=== PATIENT | male | born 1970 | race Caucasian/White ===

== ENCOUNTER 2021-11-29 18:45 | Emergency (ER) | payer OTHER ==
--- NOTE | 2021-11-29 19:25 | ERPHSYRPT ---
- History of Present Illness Time Seen by Provider: 11/29/21 19:10 Source: patient Exam Limitations: no limitations Patient Subjective Stated Complaint: PT states "I was at work and I got a little hot and I got somewhat short of breath and went home and took a hot shower and sat in front of an airconditioner but I am still short of breath and I just want checked out." Triage Nursing Assessment: Pt presented alert and oriented X 3, skin pwd Pt a mbulates with an upright steady gait, able to speak in clear full sentences. PT slightly short of breath. Physician History: This is an obese 51-year-old white male who worked all day at his place of employment in the hot environment because the air conditioning was not fu nctioning. He got off of work and he just felt very short of breath. He denies chest pain then and he denies chest pain now. When he got home he ate because he was very hungry and his shortness of breath has improved but was persistent and felt that, given his cardiac history, he should be evaluated. Patient has an abdominal hernia surgery scheduled tomorrow morning. He is already been cleared preoperatively by cardiology. Patient arrives to the emergency department with a systolic blood pressure in the 150s in the room air oxygen saturation level 97%. Patient has a history of coronary artery disease (CABG) he has a history of hypothyroidism and anxiety. He has history of diabetes and hypertension. Again, he does not have chest pain. Timing/Duration: today Activities at Onset: none Severity of Dyspnea-Max: moderate Severity of Dyspnea-Current: none Possible Cause: occasional episodes Associated Symptoms: denies symptoms, No chest pain/discomfort Allergies/Adverse Reactions: No Known Drug Allergies Allergy (Verified 11/29/21 18:58) Home Medications: Aspirin 81 gm Chew [Baby Aspirin 81 mg Chew] 81 mg PO DAILY 11/29/21 [History] Atorvastatin Calcium [Lipitor] 20 mg PO DAILY 11/29/21 [History] Carvedilol [Coreg] 3.125 mg PO DAILY 11/29/21 [History] Enalapril Maleate 2.5 mg PO DAILY 11/29/21 [History] Levothyroxine Sodium [Levothyroxine] 100 mcg PO DAILY 11/29/21 [History] Metformin HCl [Metformin ER Gastric] 1,000 mg PO DAILY 11/29/21 [History] clonazePAM [Clonazepam] 2 mg PO DAILY 11/29/21 [History] Hx Tetanus, Diphtheria Vaccination/Date Given: No Hx Influenza Vaccination/Date Given: Yes Hx Pneumococcal Vaccination/Date Given: No Immunizations Up to Date: Yes Travel Risk - International Travel Have you traveled outside of the country in past 3 weeks: No - Coronavirus Screening Are you exhibiting any of the following symptoms?: No Close contact with a COVID-19 positive Pt in past 14-21 Days: No - Vaccine Status Have you recieved a Covid-19 vaccination: Yes Appointment Scheduler: Wedivite - Vaccination Dates Date of 2cond Vaccination (if applicable): 2020 - Review of Systems Constitutional: No Symptoms Eyes: No Symptoms Ears, Nose, & Throat: No Symptoms Respiratory: Dyspnea Cardiac: No Symptoms Abdominal/Gastrointestinal: No Symptoms Genitourinary Symptoms: No Symptoms Musculoskeletal: No Symptoms Skin: No Symptoms Neurological: No Symptoms Psychological: No Symptoms Endocrine: No Symptoms Hematologic/Lymphatic: No Symptoms Immunological/Allergic: No Symptoms All Other Systems: Reviewed and Negative - Past Medical History Pertinent Past Medical History: Yes Neurological History: No Pertinent History ENT History: No Pertinent History Cardiac History: Coronary Artery Disease, High Cholesterol, Hypertension Respiratory History: No Pertinent History Endocrine Medical History: Diabetes Type II, Hypoglycemia Musculoskeletal History: No Pertinent History GI Medical History: No Pertinent History History: No Pertinent History Psycho-Social History: Anxiety, Depression Male Reproductive Disorders: No Pertinent History - Past Surgical History Past Surgical History: Yes Cardiac: CABG Other Surgical History: right arm. appi. abdominal - Social History Smoking Status: Former smoker Exposure to second hand smoke: Yes Drug Use: none Patient Lives Alone: No - Nursing Vital Signs Nursing Vital Signs: Initial Vital Signs Temperature 98.6 F 11/29/21 18:51 Pulse Rate 86 11/29/21 18:51 Respiratory Rate 22 11/29/21 18:51 Blood Pressure 158/67 11/29/21 18:51 O2 Sat by Pulse Oximetry 96 11/29/21 18:51 Pain Scale Pain Intensity 0 - Physical Exam General Appearance: no apparent distress, alert, anxiety, obese Eye Exam: PERRL/EOMI, eyes nml inspection Ears, Nose, Throat Exam: hearing grossly normal, normal ENT inspection Neck Exam: normal inspection, non-tender, supple, full range of motion Respiratory Exam: normal breath sounds, lungs clear, airway intact, No chest tenderness, No respiratory distress Cardiovascular/Chest Exam: normal heart sounds, regular rate/rhythm Abdominal/Gastrointestinal Exam: soft, normal bowel sounds, No tenderness Rectal Exam: not done Extremity Exam: non-tender, normal range of motion, normal inspection Neurologic Exam: alert, oriented x 3, cooperative, copy technician II-XII nml as tested, normal mood/affect, nml cerebellar function, nml station & gait, sensation nml Skin Exam: normal color, warm, dry Lymphatic Exam: No adenopathy SpO2 Interpretation: normal SpO2: 97 O2 Delivery: Room Air - Course Nursing assessment & vital signs reviewed: Yes EKG Interpreted by Me: RATE (82), Sinus Rhythm, LAFB, Right Bundle Branch Block, Other (There is no evidence of acute ischemic changes on today's EKG. There a re few PVCs present and prolonged CA interval. There is evidence of LVH. There is no comparison EKG available) Ordered Tests: Active Orders 24 hr Category Date Time Status EKG-ER Only STAT Care 11/29/21 19:25 Active IV Insertion STAT Care 11/29/21 19:25 Active Pulse Oximetry (ED) STAT Care 11/29/21 19:25 Active CHEST 1 VIEW (PORTABLE) Stat Exams 11/29/21 19:26 Taken CBC W DIFF Stat Lab 11/29/21 19:30 Completed CMP Stat Lab 11/29/21 19:30 Completed D-DIMER QUANTITATIVE Stat Lab 11/29/21 19:30 Completed NT PRO BNP Stat Lab 11/29/21 19:30 Completed TROPONIN Q3H Lab 11/29/21 19:30 Completed TROPONIN Q3H Lab 11/29/21 22:30 Ordered TROPONIN Q3H Lab 11/30/21 01:30 Ordered TROPONIN Q3H Lab 11/30/21 04:30 Ordered TROPONIN Q3H Lab 11/30/21 07:30 Ordered Lab/Rad Data: Laboratory Result Diagrams 11/29/21 19:30 11/29/21 19:30 Laboratory Results 11/29/21 11/29/21 11/29/21 Range/Units 19:30 19:30 19:30 WBC (4.0-10.5) x10^3/uL RBC (4.1-5.6) x10^6/uL Hgb (12.5-18.0) g/dL Hct (42-50) % MCV (78-100) fL MCH (26-32) pg MCHC (32-36) g/dL RDW (11.5-14.0) % Plt Count (150-450) x10^3/uL MPV (7.5-11.0) fL Gran % (36.0-66.0) % Immature Gran % (Auto) (0.00-0.4) % Nucleat RBC Rel Count (0.00-0.1) % Eos # (Auto) (0-0.5) x10^3/uL Immature Gran # (Auto) (0.00-0.03) x10^3u/L Absolute Lymphs (auto) (1.0-4.6) x10^3/uL Absolute Monos (auto) (0.0-1.3) x10^3/uL Absolute Nucleated RBC (0.00-0.01) x10^3u/L Lymphocytes % (24.0-44.0) % Monocytes % (0.0-12.0) % Eosinophils % (0.00-5.0) % Basophils % (0.0-0.4) % Absolute Granulocytes (1.4-6.9) x10^3/uL Basophils # (0-0.4) x10^3/uL D-Dimer < 0.19 (0.0-0.50) mg/L Sodium 129 L (137-145) mmol/L Potassium 3.7 (3.5-5.1) mmol/L Chloride 95 L (98-107) mmol/L Carbon Dioxide 26 (22-30) mmol/L Anion Gap 11.6 (5-15) MEQ/L BUN 16 (9-20) mg/dL Creatinine 0.85 (0.66-1.25) mg/dL Estimated GFR > 60.0 ML/MIN Glucose 167 H (74-106) mg/dL Calcium 9.4 (8.4-10.2) mg/dL Total Bilirubin 0.30 (0.2-1.3) mg/dL AST 36 (17-59) U/L ALT 35 (0-50) U/L Alkaline Phosphatase 113 (38-126) U/L Troponin I < 0.012 (0.000-0.034) ng/mL NT-Pro-B Natriuret Pep 451 (0-900) pg/mL Serum Total Protein 6.6 (6.3-8.2) g/dL Albumin 4.1 (3.5-5.0) g/dL 11/29/21 Range/Units 19:30 WBC 6.3 (4.0-10.5) x10^3/uL RBC 4.20 (4.1-5.6) x10^6/uL Hgb 14.2 (12.5-18.0) g/dL Hct 39.7 L (42-50) % MCV 94.5 (78-100) fL MCH 33.8 H (26-32) pg MCHC 35.8 (32-36) g/dL RDW 11.7 (11.5-14.0) % Plt Count 239 (150-450) x10^3/uL MPV 9.4 (7.5-11.0) fL Gran % 59.5 (36.0-66.0) % Immature Gran % (Auto) 0.2 (0.00-0.4) % Nucleat RBC Rel Count 0.0 (0.00-0.1) % Eos # (Auto) 0.22 (0-0.5) x10^3/uL Immature Gran # (Auto) 0.01 (0.00-0.03) x10^3u/L Absolute Lymphs (auto) 1.62 (1.0-4.6) x10^3/uL Absolute Monos (auto) 0.66 (0.0-1.3) x10^3/uL Absolute Nucleated RBC 0.00 (0.00-0.01) x10^3u/L Lymphocytes % 25.7 (24.0-44.0) % Monocytes % 10.5 (0.0-12.0) % Eosinophils % 3.5 (0.00-5.0) % Basophils % 0.6 (0.0-0.4) % Absolute Granulocytes 3.75 (1.4-6.9) x10^3/uL Basophils # 0.04 (0-0.4) x10^3/uL D-Dimer (0.0-0.50) mg/L Sodium (137-145) mmol/L Potassium (3.5-5.1) mmol/L Chloride (98-107) mmol/L Carbon Dioxide (22-30) mmol/L Anion Gap (5-15) MEQ/L BUN (9-20) mg/dL Creatinine (0.66-1.25) mg/dL Estimated GFR ML/MIN Glucose (74-106) mg/dL Calcium (8.4-10.2) mg/dL Total Bilirubin (0.2-1.3) mg/dL AST (17-59) U/L ALT (0-50) U/L Alkaline Phosphatase (38-126) U/L Troponin I (0.000-0.034) ng/mL NT-Pro-B Natriuret Pep (0-900) pg/mL Serum Total Protein (6.3-8.2) g/dL Albumin (3.5-5.0) g/dL - Progress Progress: improved, re-examined Air Movement: good Progress Note: 11/29/21 21:00 Chest x-ray shows no acute cardiopulmonary process. Medical decision making: I do not feel there is necessary for this patient to undergo 3-hour repeat troponin level. He has no chest pain his shortness of breath has resolved completely. He is just recently been evaluated by the cbx operator and cleared for surgical procedure tomorrow. We will make a chart for him to take to anesthesia tomorrow. Patient is ready and wants to go home. Blood Culture(s) Obtained: No Antibiotics given: No Counseled pt/family regarding: lab results, diagnosis, need for follow-up, rad results - Departure Departure Disposition: Home Clinical Impression: Shortness of breath, Hyponatremia Condition: Stable Critical Care Time: No Additional Instructions: Take the copy of your emergency room visit tonight to your surgery tomorrow and provide the information to anesthesia preoperatively.
[2021-11-29 19:47] LABS: Absolute Neutrophil Ct (ANC) 3.75 x10^3/uL (1.4-6.9); Basophil (Absolute #) 0.04 x10^3/uL (0-0.4); Eosinophil % 3.5 % (0.00-5.0); Eosinophil (Absolute #) 0.22 x10^3/uL (0-0.5); Hematocrit 39.7 % (42-50); Hemoglobin 14.2 g/dL (12.5-18.0); Lymphocyte (Absolute #) 1.62 x10^3/uL (1.0-4.6); Lymphocytes % 25.7 % (24.0-44.0); Mean Cell Volume 94.5 fL (78-100); Mean Corpuscular Hemoglobin 33.8 pg (26-32); Mean Corpuscular Hgb Concent. 35.8 g/dL (32-36); Mean Platelet Volume 9.4 fL (7.5-11.0); Monocyte (Absolute #) 0.66 x10^3/uL (0.0-1.3); Monocytes % 10.5 % (0.0-12.0); Neutrophil % 59.5 % (36.0-66.0); Platelet Count 239 x10^3/uL (150-450); Red Cell Distribution Width 11.7 % (11.5-14.0); White Blood Count 6.3 x10^3/uL (4.0-10.5)
[2021-11-29 20:15] LABS: ALBUMIN 4.1 g/dL (3.5-5.0); ALKALINE PHOSPHATASE 113 U/L (38-126); ANION GAP 11.6 MEQ/L (5-15); BLOOD UREA NITROGEN 16 mg/dL (9-20); CHLORIDE 95 mmol/L (98-107); Calcium 9.4 mg/dL (8.4-10.2); Carbon Dioxide 26 mmol/L (22-30); Creatinine 1 0.85 mg/dL (0.66-1.25); EST GLOMERULAR FILTRATION RATE > 60.0 ML/MIN; Glucose 167 mg/dL (74-106); NT PRO BNP 451 pg/mL (0-900); Potassium 3.7 mmol/L (3.5-5.1); SGOT/AST 36 U/L (17-59); SGPT/ALT 35 U/L (0-50); SODIUM 129 mmol/L (137-145); Total Protein 6.6 g/dL (6.3-8.2)
[2021-11-29 21:04] VITALS: O2SAT 97
[2021-11-29 21:07] VITALS: BP 113/50; PULSE 74
--- NOTE | 2021-11-30 08:39 | XRAY ---
Indication: Short of breath. Comparison: None Portable chest inflated and clear with a few incidental tiny calcified granulomas. Heart not enlarged with CABG surgery. Bony thorax intact with mild osteopenia, degenerative changes, minimal scoliosis, lower cervical fusion hardware, and right shoulder arthroplasty. Impression: Nonacute chest with chronic features.
== END 2021-11-29 21:19 | disposition home or self-care (01) ==
LOC: ED 18:45
DX: R06.02 Shortness of breath (principal); E87.1 Hypo-osmolality and hyponatremia; E11.9 Type 2 diabetes mellitus without complications; I10 Essential (primary) hypertension; E78.5 Hyperlipidemia, unspecified; Z79.84 Long term (current) use of oral hypoglycemic drugs; Z79.899 Other long term (current) drug therapy
CPT/HCPCS: 36000; 36415; 71045; 80053; 83880; 84484; 85025; 85379; 93005; 94760; 99284

== ENCOUNTER 2023-07-31 16:12 | Day surgery (SDC) | payer OTHER ==
[2023-07-31] MEDS ORDERED: LIDOCAINE HCL 1% 50 MG/5 ML VL PF IJ ONE (16:13)
[2023-07-31] MEDS ORDERED: Sodium Chloride 0.9(Preservative Free) 10 ML IJ ONE (16:13)
[2023-07-31] MEDS ORDERED: Decadron 4 MG INJ IV ONE (16:13)
[2023-07-31] MEDS ORDERED: Lactated Ringers 1,000 ML IV ONE (16:56)
--- NOTE | 2023-07-31 18:35 | XRAY ---
Indication: Right L4-S1 transforaminal HENNY. Intraoperative fluoroscopy provided for 49 seconds. 7 digital spot image submitted for interpretation demonstrates posterior needle tips projecting over the expected right L4 and L5 nerve roots. Small amount of contrast injected for needle tip placement. Correlate with intraoperative findings/report.
--- NOTE | 2023-08-01 12:45 | XRAY ---
49 seconds of fluoroscopy was used in surgery for a right L4-S1 transforaminal HENNY.
== END 2023-07-31 18:00 | disposition home or self-care (01) ==
LOC: SDC-PAIN 16:12
PROVIDERS: ATTEND Psychiatry & Neurology Pain Medicine
DX: M54.16 Radiculopathy, lumbar region (principal); E11.9 Type 2 diabetes mellitus without complications
CPT/HCPCS: 64483; 64484; 72100; 77003; 82947; J1100; J2001; Q9966